=== PATIENT | female | born 1935 | race Caucasian/White ===

== ENCOUNTER → 2016-06-04 | Outpatient (CLI) | payer MEDICARE, BC ==
--- NOTE | ~2016-06-04 | ENPV ---
Vascular Upper Extremities Veins Procedure Demographics Patient Name BERT DAVENPORT Date of Study 06/04/2016 Patient Number [id number] Gender Female Date of 1935 Age 81 Visit Number [id number] Height Accession Number [id number] Weight Room Number BSA BMI Referring Brennen Chairez MD Interpreting Scot Celaya MD Physician Rg Juan MD Physician Brennen Chairez Physician Ordering Physician Brennen Chairez Drawing Instructor MD [employer] Martinez Hunt T, [facility] Conclusions Summary Normal left upper extremity venous duplex. 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 Procedure Type of Study: Veins:Upper Extremities Veins, Upper Extremity Left. Indications for Study:Swelling and Pain. Appropriate Use Criteria:8 Allergies - Sulfa. Patient Status:Routine. Study Location:Vascular Lab. Technical Quality:Good visualization. - Preliminary reported to:Dr. Hutton. Velocities are measured in cm/s ; Diameters are measured in cm Right UE Vein Measurements 2D and Doppler Measurements + + + + +--------+ + !Location !Visualized !Compressibility !Thrombosis !Signal !Reflux ! + + + + +--------+ + !IJV !Yes !Yes !None !Phasic ! ! + + + + +--------+ + Left UE Vein Measurements 2D and Doppler Measurements + + + + +--------+--------+ !Location !Visualized !Compressibility !Thrombosis !Signal !Reflux ! + + + + +--------+--------+ !IJV !Yes !Yes !None !Phasic ! ! + + + + +--------+--------+ !SCV !Yes !Yes !None !Phasic ! ! + + + + +--------+--------+ !Innominate !Yes !Yes !None !Phasic ! ! + + + + +--------+--------+ !Axillary !Yes !Yes !None !Phasic ! ! + + + + +--------+--------+ !Brachial !Yes !Yes !None !Phasic ! ! + + + + +--------+--------+ !Radial !Yes !Yes !None !Phasic ! ! + + + + +--------+--------+ !Ulnar !Yes !Yes !None !Phasic ! ! + + + + +--------+--------+ !Basilic !Yes !Yes !None !Phasic ! ! + + + + +--------+--------+ !Cephalic !Yes !Yes !None !Phasic ! ! + + + + +--------+--------+ Signature dtt: MEL ESPANA dtd: 06/04/16 1502 Physician Self Edit
== END | disposition disaster alternative care site (69) ==
LOC: GRAD 14:00
DX: C90.01 Multiple myeloma in remission (principal); D64.81 Anemia due to antineoplastic chemotherapy; N28.9 Disorder of kidney and ureter, unspecified; M81.0 Age-related osteoporosis without current pathological fracture; M89.9 Disorder of bone, unspecified; R11.11 Vomiting without nausea; M79.622 Pain in left upper arm; M79.89 Other specified soft tissue disorders